=== PATIENT | female | born 1945 | race Caucasian/White ===

== ENCOUNTER 2018-08-30 15:56 | Emergency (ER) | payer MEDICARE ==
[2018-08-30 16:16] VITALS: BP 158/81
--- NOTE | 2018-08-30 16:52 | ER Document Report ---
ED General - General Chief Complaint: Rib Pain Stated Complaint: FALL Time Seen by Provider: 08/30/18 16:46 Primary Care Provider: [facility] [Provider Group] - Follow up as needed CODY KHAN [NO LOCAL MD] - Follow up as needed Mode of Arrival: Ambulatory Information source: Patient Notes: 72-year-old female presented to ED for complaint of right rib right knee right leg and right face pain. She states she was in a convenient store when she tripped over some watermelons away and I will. She states she fell landing flat on her right side to include her arm face ribs and leg. She states she did not have time to even catch herself with her hands. She states it was about 11 AM this morning and her daughter insisted she come to the doctor. She denies any shortness of breath but states it is very painful to take a deep breath. TRAVEL OUTSIDE OF THE [place] IN LAST 30 DAYS: No - HPI Onset: This morning Onset/Duration: Sudden, Persistent Quality of pain: Sharp Severity: Moderate Pain Level: 3 Associated symptoms: Body/muscle aches, Chest pain, Other - Pain to the right side of her face right arm right leg and right chest from falling landing on her right side Exacerbated by: Walking, Deep breathing Relieved by: Denies Similar symptoms previously: No Recently seen / treated by doctor: No - Related Data Allergies/Adverse Reactions: Penicillins Allergy (Verified 01/11/12 02:14) Past Medical History - General Information source: Patient - Social History Smoking Status: Former Smoker Cigarette use (# per day): No Chew tobacco use (# tins/day): No Smoking Education Provided: No Frequency of alcohol use: Rare Drug Abuse: None Lives with: Family - Adult daughter Family History: Reviewed & Not Pertinent Patient has suicidal ideation: No Patient has homicidal ideation: No - Past Medical History Cardiac Medical History: Reports: None Pulmonary Medical History: Reports: None EENT Medical History: Reports: None Neurological Medical History: Reports: None Endocrine Medical History: Reports: None Renal/ Medical History: Reports: None Malignancy Medical History: Reports: Hx Lung Cancer GI Medical History: Reports: None Musculoskeletal Medical History: Reports None Skin Medical History: Reports None Psychiatric Medical History: Reports: Hx Depression Traumatic Medical History: Reports: None Infectious Medical History: Reports: None Past Surgical History: Reports: Hx Abdominal Surgery - Hernia repair that the tubal ligation and then she developed another hernia, Hx Tubal Ligation - Immunizations Immunizations up to date: No Hx Diphtheria, Pertussis, Tetanus Vaccination: No Review of Systems - Review of Systems Constitutional: No symptoms reported EENT: No symptoms reported Cardiovascular: No symptoms reported Respiratory: Hurts to breathe, Other - Rib tenderness right. denies: Short of breath Gastrointestinal: No symptoms reported Genitourinary: No symptoms reported Female Genitourinary: No symptoms reported Musculoskeletal: No symptoms reported Skin: No symptoms reported Hematologic/Lymphatic: No symptoms reported Neurological/Psychological: No symptoms reported -: Yes All other systems reviewed and negative Physical Exam - Vital signs Vitals: Temp Pulse Resp BP Pulse Ox 97.9 F 98 18 158/81 H 94 08/30/18 16:15 08/30/18 16:15 08/30/18 16:15 08/30/18 16:15 08/30/18 16:15 Interpretation: Normal - General General appearance: Appears well, Alert - HEENT Head: Ecchymosis - Right side of her face, Tenderness - Right side of her face Eyes: Normal Pupils: PERRL Visual delacruz normal: Yes Ears: Normal External canal: Normal Tympanic membrane: Normal Sinus: Normal Nasal: Normal Mouth/Lips: Normal Mucous membranes: Normal Pharynx: Normal Neck: Normal - Respiratory Respiratory status: No respiratory distress Chest status: Nontender Breath sounds: Normal Chest palpation: Normal - Cardiovascular Rhythm: Regular Heart sounds: Normal auscultation Murmur: No - Abdominal Inspection: Normal Distension: No distension Bowel sounds: Normal Tenderness: Nontender Organomegaly: No organomegaly - Back Back: Normal, Nontender - Extremities General upper extremity: Normal inspection, Nontender, Normal color, Normal ROM, Normal temperature General lower extremity: Normal inspection, Normal color, Normal ROM, Normal temperature, Normal weight bearing. No: Joanne's sign Shoulder: Normal, Nontender Arm: Tender Elbow: Tender. No: Abrasion, Deformity, Dislocation, Ecchymosis, Instability, Joint effusion, Laceration, Limited ROM, Swollen bursa Forearm: Tender, Ecchymosis. No: Abrasion, Deformity, Instability, Laceration Wrist: Normal, Nontender Hand: Normal, Nontender Hip: Tender, Pain with ROM. No: Abrasion, Deformity, Dislocation, Ecchymosis, Instability, Laceration, Unable to bear weight Thigh: Tender. No: Abrasion, Deformity, Dislocation, Ecchymosis, Instability, Laceration, Unable to bear weight Knee: Tender, Ecchymosis, Pain with ROM, Patellar tendon intact, Tender joint line. No: Abrasion, Deformity, Dislocation, Drawer's test instability, Instability, Joint effusion, Laceration, Laxity with varus stress, Popliteal fossa tender, Unable to bear weight Ankle: Normal, Nontender Foot: Normal, Nontender - Neurological Neuro grossly intact: Yes Cognition: Normal Orientation: AAOx4 Everett Coma Scale Eye Opening: Spontaneous [place] Coma Scale Verbal: Oriented [place] Coma Scale Motor: Obeys Commands Formoso Coma Scale Total: 15 Speech: Normal Motor strength normal: LUE, RUE, LLE, RLE Sensory: Normal - Psychological Associated symptoms: Normal affect, Normal mood - Skin Skin Temperature: Warm Skin Moisture: Dry Skin Color: Normal, Ecchymosis Location of irregularity: Face - Right face, Extremities - Right leg Irregularity with: Tenderness - Right ribs leg and face Course - Re-evaluation Re-evalutation: 08/30/18 21:27 Discussed x-rays with patient and written report given to patient. Patient was given instructions for incentive spirometry Tylenol Motrin ice packs warm packs and need to follow-up with primary care. Patient was able to verbalize understanding and agreement with treatment plan. Patient had clear lung sounds throughout her visit. Patient does have a history of lung CA with COPD. - Vital Signs Vital signs: Temp Pulse Resp BP Pulse Ox 97.9 F 98 18 158/81 H 94 08/30/18 16:15 08/30/18 16:15 08/30/18 16:15 08/30/18 16:15 08/30/18 16:15 - Diagnostic Test Radiology reviewed: Image reviewed, Reports reviewed Discharge - Discharge Clinical Impression: right facial contusion Fall Qualifiers: Encounter type: initial encounter Qualified Code(s): W19.XXXA - Unspecified fall, initial encounter Contusion of rib on right side Qualifiers: Encounter type: initial encounter Qualified Code(s): S20.211A - Contusion of right front wall of thorax, initial encounter Contusion of right hip Qualifiers: Encounter type: initial encounter Qualified Code(s): S70.01XA - Contusion of right hip, initial encounter Condition: Stable Disposition: HOME, SELF-CARE Instructions: Family Physicians / Practices Additional Instructions: Rib Contusion You have been diagnosed as having bruised ribs. It will usually take a few weeks for these injured ribs to heal. You should cough or take a deep breath at least every hour or two to prevent lung complications. You should not engage in any strenuous physical activity until released by your physician. The usual rule is "if it hurts, don't do it." Return if you develop any of the following: (1) Fever or chills. (2) Persistent cough, coughing up blood, or shortness of breath. (3) Increasing pain. (4) Weakness, lightheadedness, or fainting. MUSCLE STRAIN: You have strained a muscle -- torn the fibers within the muscle. This often occurs with strenuous exertion, or during an injury that suddenly stretches the muscle. The seriousness of a strain varies. Some strains heal within days, others cause problems for months. X-rays cannot show a muscle strain. X-rays are taken only if symptoms suggest that a fracture could be present. The usual treatment of a muscle strain is rest and ice packs. Sometimes, a sling, splint, or crutches may be necessary to rest the muscle. The muscle can be used again once pain subsides. Severe strains require a special exercise and stretching program to prevent permanent stiffness and disability. Your doctor will advise you if this will be necessary. Call the doctor immediately if pain or swelling becomes severe, or if numbness or discoloration develop. CONTUSION: Your injury has resulted in a contusion -- a crushing of the deep tissues. No injury to important structures was detected during the physician's exam. Contusions vary in the amount of pain they cause, and in the length of time required for healing. Typically, the area will become bruised, and will remain painful to touch for two or three weeks. However, most patients are back to working and playing within a few days. After the initial period of rest and cold-packs, your symptoms (together with the doctor's recommendations) will determine how rapidly you can get back to full activity. Usually this means "do what feels okay, but don't do things that hurt." If re-examination was recommended, it's important to follow up as instructed. Call the doctor or return any time if pain increases, if swelling becomes severe, if you develop numbness or weakness in an injured extremity, or if any other alarming symptoms occur. USE OF TYLENOL (ACETAMINOPHEN): Acetaminophen may be taken for pain relief or fever control. It's much safer than aspirin, offering a wider range of "safe" dosages. It is safe during . Some brand names are Tylenol, Panadol, Datril, Anacin 3, Tempra, and Liquiprin. Acetaminophen can be repeated every four hours. The following are maximum recommended dosages: WEIGHT Dose Drops Elixir Chewable(80mg) (LBS.) drprs=droppers tsp=teaspoon 6 40 mg 0.4 ml (1/2) 6-11 80 mg 0.8 ml (full) tsp 1 tab 12-16 120 mg 1 1/2 drprs 3/4 tsp 1 1/2 tabs 17-23 160 mg 2 drprs 1 tsp 2 tabs 24-30 240 mg 3 drprs 1 1/2 tsp 3 tabs 30-35 320 mg 2 tsp 4 tabs 36-41 360 mg 2 1/4 tsp 4 1/2 tabs 42-47 400 mg 2 1/2 tsp 5 tabs 48-53 480 mg 3 tsp 6 tabs 54-59 520 mg 3 1/4 tsp 6 1/2 tabs 60-64 560 mg 3 1/2 tsp 7 tabs 65-70 600 mg 3 3/4 tsp 7 1/2 tabs 71-76 640 mg 4 tsp 8 tabs 77-82 720 mg 4 1/2 tsp 9 tabs 83-88 800 mg 5 tsp 10 tabs >89 pounds or adults 650 mg to 900 mg Acetaminophen can be repeated every four hours. Maximum dose not to exceed 4000 mg a day. These maximum recommended dosages are slightly higher than the dosages written on the product container, but these dosages are very safe and below the toxic dosage for acetaminophen. ICE PACKS: Apply ice packs frequently against the painful area. Many different schedules are recommended, such as "20 minutes on, 20 minutes off" or "one hour ice, two hours rest." If you need to work, you may need to go longer between ice treatments. You should plan to have the area ice packed AT LEAST one fourth of the time. The ice should be applied over the wrap, tape, or splint, or over a layer of cloth -- not directly against the skin. Some ice bags have a built-in cloth and can be put directly on the skin. WARM PACKS: After approximately two days, apply gentle heat (such as a heating pad or hot water bottle) for about 20 to 30 minutes about every two hours -- at least four times daily. Warmth and elevation will help you make a more rapid recovery, and will ease the pain considerably. Do not use HOT heat, and never apply heat for longer than 30 minutes. The continuous heat can invisibly damage skin and muscles -- even when no burn is seen on the surface. Damaged muscles can make you MORE sore. Ibuprofen Ibuprofen is an excellent, safe drug for pain control. In addition, it has potent antiinflammatory effects which are beneficial, especially in the treatme nt of injuries, arthritis, or tendonitis. It's best to take ibuprofen with food. Persons with ulcer disease or allergy to aspirin should notify their physician of this before taking ibuprofen. Take the medication exactly as prescribed. Don't take additional doses unless instructed to do so by your doctor. If you develop wheezing, shortness of breath, hives, faintness, stomach pain, vomiting, or dark black stools, return for re-evaluation at once. FOLLOW-UP CARE: If you have been referred to a physician for follow-up care, call the physicians office for an appointment as you were instructed or within the next two days. If you experience worsening or a significant change in your symptoms, notify the physician immediately or return to the Emergency Department at any time for re-evaluation. Forms: Elevated Blood Pressure Referrals: ERIN,CODY [NO LOCAL MD] - Follow up as needed [facility] [Provider Group] - Follow up as needed
--- NOTE | 2018-08-30 17:04 | RADIOLOGY REPORT (SQ) ---
EXAM DESCRIPTION: RIBS RIGHT W/PA CHEST COMPLETED DATE/TIME: 08/30/2018 4:53 pm REASON FOR STUDY: fall right rib pain COMPARISON: None. TECHNIQUE: Frontal view of the chest and additional views of the right ribs acquired. NUMBER OF VIEWS: Three view. LIMITATIONS: None. FINDINGS: FRONTAL CXR: Mild prominence of the interstitial markings in the lungs may be on a chroni c basis. There may be acute superimposed inflammatory changes at the lung bases representing atelect asis. Minimal scarring of the costophrenic angles bilaterally may represent minimal pleural effusion s. No pneumothorax. RIBS: No acute displaced rib fractures. No lytic or blastic bony lesions. OTHER: No other significant finding. IMPRESSION: 1. Mild prominence of the interstitial markings in the lungs may represent chronic willett ges with acute superimposed inflammatory changes not entirely excluded. Correlation with history sug gested. 2. NO PNEUMOTHORAX. 3. NO acute DISPLACED RIB FRACTURES. COMMENT: SITE OF TRAUMA/COMPLAINT MARKED/STAMP COMPLETED: NO. TECHNICAL DOCUMENTATION: JOB ID: [id number] [employer]- All Rights Reserved Reading location - IP/workstation name: [email or web address]
[2018-08-30] MEDS ORDERED: IBUPROFEN 800 MG TABLET PO ONE (17:09)
== END 2018-08-30 17:20 | disposition home or self-care (01) ==
LOC: ER 15:56
DX: S00.83XA Contusion of other part of head, initial encounter (principal); S20.211A Contusion of right front wall of thorax, initial encounter; S70.01XA Contusion of right hip, initial encounter; R07.81 Pleurodynia; M25.561 Pain in right knee; M79.604 Pain in right leg; R51 Headache; M79.10 Myalgia, unspecified site; R07.9 Chest pain, unspecified; M79.601 Pain in right arm; W18.09XA Striking against other object with subsequent fall, initial encounter; Z87.891 Personal history of nicotine dependence
CPT/HCPCS: 99283; 71101; A9270